=== PATIENT | male | born 1970 | race Caucasian/White ===

== ENCOUNTER → 2020-11-23 12:37 | Outpatient (CLI) | payer MEDICARE, SELFPAY ==
--- NOTE | 2020-11-23 12:44 | CT_ITS ---
STUDY: CT CERVICAL SPINE WITH INTRATHECAL CONTRAST (CERVICAL CT MYELOGRAM) REASON FOR EXAM: Male, 50 years old. RADICULOPATHY RADIATION DOSAGE (If Supplied By Facility): CTDIvol = ( 22.88 ) mGy, DLP = ( 565.84 ) mGycm TECHNIQUE: Transaxial images were obtained following intrathecal administration of 13 ml of ISOVUE 300 contrast material, performed by Dr. Ishaan CAMARILLO. Please refer to this physicians technical notes for procedural details. Coronal and sagittal reconstructions were obtained. Individualized dose optimization techniques were used for this CT. COMPARISON: Comparison is made with prior mammogram done earlier in the day. FINDINGS: Normal craniovertebral junction. There are degenerative changes of the anterior atlantoaxial articulation. Normal odontoid process. Normal cervical lordosis. Normal vertebral bodies and posterior osseous elements. C2-3: Normal endplates. Normal disc height and morphology. Normal central canal and bilateral intervertebral neural foramen. C3-4: Normal endplates. Normal disc height and morphology. Normal central canal and bilateral intervertebral neural foramen. C4-5: Mild degree of disc space narrowing. Mild to moderate degree of central disc bulge causing deformity of the thecal sac along its central portion. No significant stenosis is seen. C5-6: There is evidence of a a central and left paracentral posterior spondylosis. This causes deformity of the thecal sac more prominent on the left side. There is a moderate degree of narrowing of the AP diameter of the sac. C6-7: Moderate degree of disc space narrowing. There is evidence of a large posterior spondylosis along the central and right paracentral region at this level extending into the right neural foramina region causing a moderate degree of deformity of the thecal sac as well as moderate degree of right neural foraminal stenosis. Mild degree of left neural foraminal stenosis. C7-T1: Moderate degree of disc space narrowing. Posterior spondylosis and disc protrusion causing a moderate to marked degree of narrowing of the AP diameter of the canal with bilateral neural foraminal stenosis worse on the right side. No demonstrated soft tissue abnormality. CT/Spine Cervical WITH Contrast IMPRESSION: Multiple findings as discussed above. Electronically Signed: Renny Quiros MD at 14:06 EDT , Service support ,
--- NOTE | 2020-11-23 12:45 | RAD_ITS ---
PROCEDURE: CERVICAL MYELOGRAM DATE OF EXAMINATION: 11/23/2020 INDICATION: Male, 50 years old. Chronic neck pain. PHYSICIAN: Renny Quiros M.D. CONSENT: The patient''s history and physical findings were reviewed. The lumbar myelogram procedure was discussed with the patient prior to signing a consent. SEDATION: Local anesthesia with 3 mL of 1% lidocaine was used. FLUOROSCOPY TIME (if supplied): (0:56) minutes/seconds. 6 images were obtained. Injection Information: 13 cc of ISOVUE-M 300 Number of images obtained: 6 TECHNIQUE: Digital fluoroscopy was used to identify a safe approach for the lumbar myelogram. The back was prepped and draped in usual fashion. Local anesthesia was utilized. Under fluoroscopic guidance a 22-gauge spinal needle was inserted into the spinal canal at the L3-L4 level. The Clear spinal fluid was seen. 13 mL of Isovue 300 M was injected into the spinal canal. Following this, the patient was placed head down for the contrast to enter the cervical spine. A spinal cord stimulator device is seen. The distal tip of the electrodes is at the T7-T8 level. RAD/Myelography 2/> Spine Regions IMPRESSION: Normal lumbar and cervical myelogram. CT scan will follow. The patient tolerated the procedure well. Electronically Signed: Renny Quiros MD at 14:02 EDT , Service support ,
[2020-11-23 12:48] VITALS: BP 141/97; PULSE 99; RESP 16; TEMP 36.8; O2SAT 96; BMI 28.8
[2020-11-23] MEDS: Lidocaine 2% (5ml sdv) 5 ML VIAL.MPF 1 ML INFILT (13:00)
[2020-11-23 13:41] VITALS: BP 147/103; PULSE 103; RESP 16; O2SAT 97
[2020-11-23 14:27] VITALS: BP 142/95; PULSE 101; RESP 16; O2SAT 96
== END | disposition home or self-care (01) ==
LOC: RAD 12:41
PROVIDERS: Referring Provider Orthopaedic Surgery; Visit Provider Orthopaedic Surgery
DX: M47.22 Other spondylosis with radiculopathy, cervical region (principal)
CPT/HCPCS: 62305; 72126; Q9965

== ENCOUNTER → 2021-10-10 | Outpatient (CLI) | payer MEDICARE, SELFPAY ==
--- NOTE | 2021-10-10 16:55 | RAD_ITS ---
STUDY: X-RAY - RIGHT HAND REASON FOR EXAM: Male, 51 years old. right thumb pain TECHNIQUE: view(s) of the hand. COMPARISON: None. FINDINGS: Normal radiocarpal articulation. Normal distal radioulnar joint. Normal visualized carpal bones. Normal carpal articulations Normal carpometacarpal articulation of the thumb. Normal second through fifth carpometacarpal joints. Normal metacarpi. There is a fracture at the base of the first metacarpal.. Normal interphalangeal joint of the thumb. Normal proximal and distal phalanges of the thumb. Normal metacarpophalangeal joints of the second through fifth fingers. Normal proximal and distal interphalangeal joints of the second through fifth fingers. Normal phalanges of the second through fifth fingers. The soft tissue structures are unremarkable. RAD/Hand Min 3 Views IMPRESSION: Fracture at the base of the first metacarpal. Electronically Signed: Juan Luis Mckeon MD at 2:36 EDT ,
== END | disposition home or self-care (01) ==
LOC: MTLAB 16:53 → MTRAD 16:55
PROVIDERS: Referring Provider Internal Medicine; Visit Provider Internal Medicine
DX: M79.644 Pain in right finger(s) (principal)
CPT/HCPCS: 73130

== ENCOUNTER → 2021-12-31 | Outpatient (CLI) | payer MEDICARE, SELFPAY ==
--- NOTE | 2021-12-31 10:30 | RAD_ITS ---
STUDY: X-RAY CHEST REASON FOR EXAM: Male, 51 years old. Arthritis. Rheumatoid arthritis. Denies chest pain or shortness of breath. TECHNIQUE: PA and lateral views of the chest. COMPARISON: None. FINDINGS: The lungs are clear and mildly hyperexpanded. There is no demonstrated pleural abnormality. Normal size heart. Normal mediastinum and betty. Normal visualized pulmonary arteries. Normal visualized aortic arch and descending thoracic aorta. Mild degenerative changes of thoracic spine. There is a dorsal column stimulator within the spinal canal posterior to the T8 vertebra. Normal visualized ribs, clavicles, and shoulders. There is no demonstrated abnormality of the visualized soft tissue structures of the upper abdomen. RAD/Chest PA and Lateral IMPRESSION: 1. No acute cardiopulmonary disease. 2. Dorsal column stimulator Electronically Signed: Gurinder Do DO at 20:51 EDT ,
[2021-12-31 12:13] LABS: Erythrocyte Sedimentation Rate 12 mm/hr (0-20)
[2021-12-31 12:15] LABS: Absolute Neutrophil Count 4.7 X10^3/uL (2.0-7.7); Basophil# 0.03 X10^3/uL; Basophil% 0.4 % (0-1); Eosinophil# 0.05 X10^3/uL; Eosinophils% 0.6 % (0-5); Hematocrit 51.4 % (40-54); Hemoglobin 17.1 g/dL (13.0-16.5); Lymphocyte % 29.2 % (19-41); Mean Corp Hgb Conc 33.3 g/dL (32-36); Mean Corpuscular Hgb 32.4 pg (27.0-32.0); Mean Corpuscular Volume 97.3 fL (80-94); Mean Platelet Vol. 10.3 fl (6.2-12.0); Monocyte# 0.79 X10^3/uL; NRBC Flagged by Analyzer 0 % (0-5); Neutrophil # 4.68 X10^3/uL (2.7-7.7); Neutrophil % 59.5 % (47-70); Platelet Count 276 K/mm3 (150-450); RBC Distribution Width CV 12.8 % (11.6-14.6); RBC Distribution Width SD 46.6 fl (35.1-43.9); Red Blood Count 5.28 M/mm3 (4.6-6.2); White Blood Count 7.9 K/mm3 (4.4-11.0)
[2021-12-31 12:34] LABS: ALB/GLOB Ratio 0.9 RATIO (0.9-2.4); AST(SGOT) 35 U/L (15-37); Alanine Aminotransfer ALT/SGPT 41 U/L (16-61); Albumin, Serum 3.7 g/dL (3.2-5.0); Alkaline Phosphatase 63 U/L (45-117); Anion Gap 4 (5-15); BUN 23 mg/dL (7-18); BUN/Creat Ratio 14.9 RATIO (10-20); CRP < 2.90 mg/L (0.0-3.0); Calcium,Total 9.8 mg/dL (8.5-10.1); Chloride 100 mmol/L (98-107); Creatinine, Serum 1.54 mg/dL (0.70-1.30); EST Glomerular Filtration Rate 51 mL/min (>60); Est Glom Filt Rate - Afr Amer 61 mL/min (>60); Globulin 4.2 g/dL (2.2-4.2); Glucose 79 mg/dL (74-106); Potassium 3.8 mmol/L (3.5-5.1); Protein, Total 7.9 g/dL (6.4-8.2); Sodium Level 135 mmol/L (136-145)
[2021-12-31 13:02] LABS: Hepatitis B Surface Antibody Non-Reactive; Hepatitis B Surface Antigen Non-Reactive (Nonreactive); Hepatitis C Antibody Non-Reactive (Nonreactive)
[2022-01-01 17:06] LABS: ANTINUCLEAR ANTIBODIES DIRECT Negative (Negative)
== END | disposition home or self-care (01) ==
LOC: MTLAB 10:22
PROVIDERS: PCP Internal Medicine; Referring Provider Internal Medicine Rheumatology; Visit Provider Internal Medicine Rheumatology
DX: M05.79 Rheumatoid arthritis with rheumatoid factor of multiple sites without organ or systems involvement (principal); B20 Human immunodeficiency virus [HIV] disease; M47.897 Other spondylosis, lumbosacral region; I10 Essential (primary) hypertension; Z86.73 Personal history of transient ischemic attack (TIA), and cerebral infarction without residual deficits; I25.2 Old myocardial infarction; Z87.19 Personal history of other diseases of the digestive system
CPT/HCPCS: 36415; 71046; 80053; 85025; 85652; 86038; 86140; 86200; 86431; 86480; 86706; 86803; 87340

== ENCOUNTER → 2022-01-16 | Outpatient (CLI) | payer MEDICARE, SELFPAY ==
[2022-01-16 15:35] LABS: Cholesterol 238 mg/dL (200); High Density Lipoprotein 55 mg/dL; Triglycerides 89 mg/dL; Very Low Density Lipoprotein 18 mg/dL (5-40)
== END | disposition home or self-care (01) ==
PROVIDERS: PCP Internal Medicine; Referring Provider Internal Medicine Rheumatology; Visit Provider Internal Medicine Rheumatology
DX: M05.79 Rheumatoid arthritis with rheumatoid factor of multiple sites without organ or systems involvement (principal); B20 Human immunodeficiency virus [HIV] disease; M47.897 Other spondylosis, lumbosacral region; I10 Essential (primary) hypertension; Z86.73 Personal history of transient ischemic attack (TIA), and cerebral infarction without residual deficits; I25.2 Old myocardial infarction; Z87.19 Personal history of other diseases of the digestive system; G47.33 Obstructive sleep apnea (adult) (pediatric)
CPT/HCPCS: 36415; 80061

== ENCOUNTER → 2022-01-29 | Outpatient (CLI) | payer MEDICARE, SELFPAY | END | disposition home or self-care (01) | LOC: SL 20:37 | PROVIDERS: PCP Internal Medicine; Referring Provider Internal Medicine; Visit Provider Internal Medicine | DX: G47.33 Obstructive sleep apnea (adult) (pediatric) (principal) | CPT/HCPCS: 95811 ==

== ENCOUNTER → 2022-01-31 | Outpatient (CLI) | payer MEDICARE, SELFPAY ==
[2022-02-05 13:48] LABS: HIV-1 RNA by PCR, Quant. < 20 copies/mL (.)
== END | disposition home or self-care (01) ==
PROVIDERS: PCP Internal Medicine
DX: Z21 Asymptomatic human immunodeficiency virus [HIV] infection status (principal)
CPT/HCPCS: 36415; 87536

== ENCOUNTER → 2022-02-05 | Outpatient (CLI) | payer MEDICARE, SELFPAY ==
[2022-02-05 15:51] LABS: Absolute Lymphocyte Count 2.29 X10^3/uL (0.83-4.51); Absolute Neutrophil Count 6.6 X10^3/uL (2.0-7.7); Basophil# 0.02 X10^3/uL; Basophil% 0.2 % (0-1); Eosinophil# 0.06 X10^3/uL; Eosinophils% 0.6 % (0-5); Lymphocyte # 2.29 X10^3/ul (0.83-4.51); Lymphocyte % 22.9 % (19-41); Mean Corp Hgb Conc 35.3 g/dL (32-36); Mean Corpuscular Hgb 33.4 pg (27.0-32.0); Mean Corpuscular Volume 94.6 fL (80-94); Mean Platelet Vol. 10.4 fl (6.2-12.0); Monocyte# 0.97 X10^3/uL; Monocyte% 9.7 % (0-10); NRBC Flagged by Analyzer 0 % (0-5); Neutrophil # 6.64 X10^3/uL (2.7-7.7); Neutrophil % 66.4 % (47-70); Platelet Count 199 K/mm3 (150-450); RBC Distribution Width CV 13.3 % (11.6-14.6); RBC Distribution Width SD 46.6 fl (35.1-43.9); Red Blood Count 5.39 M/mm3 (4.6-6.2)
[2022-02-05 16:10] LABS: AST(SGOT) 41 U/L (15-37); Alanine Aminotransfer ALT/SGPT 55 U/L (16-61); Albumin, Serum 3.8 g/dL (3.2-5.0); Alkaline Phosphatase 71 U/L (45-117); Anion Gap 8 (5-15); BUN 26 mg/dL (7-18); BUN/Creat Ratio 14.9 RATIO (10-20); Calcium,Total 10.6 mg/dL (8.5-10.1); Chloride 101 mmol/L (98-107); Creatinine, Serum 1.75 mg/dL (0.70-1.30); EST Glomerular Filtration Rate 44 mL/min (>60); Est Glom Filt Rate - Afr Amer 53 mL/min (>60); Globulin 3.9 g/dL (2.2-4.2); Glucose 96 mg/dL (74-106); Potassium 3.9 mmol/L (3.5-5.1); Protein, Total 7.7 g/dL (6.4-8.2); Sodium Level 138 mmol/L (136-145)
[2022-02-07 10:27] LABS: Pathologist Review Reviewed
== END | disposition home or self-care (01) ==
PROVIDERS: PCP Internal Medicine; Referring Provider Internal Medicine Rheumatology; Visit Provider Internal Medicine Rheumatology
DX: M05.79 Rheumatoid arthritis with rheumatoid factor of multiple sites without organ or systems involvement (principal); B20 Human immunodeficiency virus [HIV] disease; Z79.899 Other long term (current) drug therapy; M47.897 Other spondylosis, lumbosacral region; I10 Essential (primary) hypertension; Z86.73 Personal history of transient ischemic attack (TIA), and cerebral infarction without residual deficits; I25.2 Old myocardial infarction; Z87.19 Personal history of other diseases of the digestive system; G47.33 Obstructive sleep apnea (adult) (pediatric)
CPT/HCPCS: 36415; 80053; 85025

== ENCOUNTER → 2022-04-04 | Outpatient (CLI) | payer MEDICARE, SELFPAY ==
[2022-04-04 12:41] LABS: Absolute Lymphocyte Count 1.27 X10^3/uL (0.83-4.51); Absolute Neutrophil Count 8.5 X10^3/uL (2.0-7.7); Basophil# 0.01 X10^3/uL; Basophil% 0.1 % (0-1); Hematocrit 48.7 % (40-54); Hemoglobin 17.2 g/dL (13.0-16.5); Lymphocyte # 1.27 X10^3/ul (0.83-4.51); Lymphocyte % 11.9 % (19-41); Mean Corp Hgb Conc 35.3 g/dL (32-36); Mean Corpuscular Hgb 33.1 pg (27.0-32.0); Mean Corpuscular Volume 93.8 fL (80-94); Mean Platelet Vol. 10.4 fl (6.2-12.0); Monocyte% 7.5 % (0-10); NRBC Flagged by Analyzer 0 % (0-5); Neutrophil # 8.51 X10^3/uL (2.7-7.7); Neutrophil % 80.1 % (47-70); Platelet Count 287 K/mm3 (150-450); RBC Distribution Width CV 13.3 % (11.6-14.6); Red Blood Count 5.19 M/mm3 (4.6-6.2); White Blood Count 10.6 K/mm3 (4.4-11.0)
[2022-04-04 13:10] LABS: AST(SGOT) 26 U/L (15-37); Alanine Aminotransfer ALT/SGPT 44 U/L (16-61); Albumin, Serum 3.9 g/dL (3.2-5.0); Alkaline Phosphatase 79 U/L (45-117); Anion Gap 7 (5-15); BUN 15 mg/dL (7-18); BUN/Creat Ratio 10.2 RATIO (10-20); Calcium,Total 9.9 mg/dL (8.5-10.1); Chloride 100 mmol/L (98-107); Cholesterol 229 mg/dL (200); Creatinine, Serum 1.47 mg/dL (0.70-1.30); EST Glomerular Filtration Rate 53 mL/min (>60); Est Glom Filt Rate - Afr Amer 64 mL/min (>60); Globulin 3.9 g/dL (2.2-4.2); Glucose 89 mg/dL (74-106); High Density Lipoprotein 53 mg/dL; Potassium 3.9 mmol/L (3.5-5.1); Protein, Total 7.8 g/dL (6.4-8.2); Sodium Level 137 mmol/L (136-145); Triglycerides 75 mg/dL; Very Low Density Lipoprotein 15 mg/dL (5-40)
== END | disposition home or self-care (01) ==
PROVIDERS: PCP Internal Medicine; Referring Provider Internal Medicine Rheumatology; Visit Provider Internal Medicine Rheumatology
DX: M05.79 Rheumatoid arthritis with rheumatoid factor of multiple sites without organ or systems involvement (principal); B20 Human immunodeficiency virus [HIV] disease; M47.897 Other spondylosis, lumbosacral region; I10 Essential (primary) hypertension; I25.2 Old myocardial infarction; G47.33 Obstructive sleep apnea (adult) (pediatric); Z87.19 Personal history of other diseases of the digestive system; Z86.73 Personal history of transient ischemic attack (TIA), and cerebral infarction without residual deficits; Z79.899 Other long term (current) drug therapy
CPT/HCPCS: 36415; 80053; 80061; 85025

== ENCOUNTER → 2022-05-30 | Outpatient (CLI) | payer MEDICARE, SELFPAY ==
[2022-05-30 12:20] LABS: Absolute Lymphocyte Count 1.98 X10^3/uL (0.83-4.51); Absolute Neutrophil Count 6.6 X10^3/uL (2.0-7.7); Basophil# 0.02 X10^3/uL; Basophil% 0.2 % (0-1); Eosinophil# 0.04 X10^3/uL; Eosinophils% 0.4 % (0-5); Hematocrit 51.3 % (40-54); Hemoglobin 17.8 g/dL (13.0-16.5); Lymphocyte # 1.98 X10^3/ul (0.83-4.51); Lymphocyte % 20.3 % (19-41); Mean Corp Hgb Conc 34.7 g/dL (32-36); Mean Corpuscular Volume 98.1 fL (80-94); Mean Platelet Vol. 10.1 fl (6.2-12.0); Monocyte# 1.11 X10^3/uL; Monocyte% 11.4 % (0-10); NRBC Flagged by Analyzer 0 % (0-5); Neutrophil # 6.56 X10^3/uL (2.7-7.7); Neutrophil % 67.3 % (47-70); Platelet Count 227 K/mm3 (150-450); RBC Distribution Width CV 13.6 % (11.6-14.6); RBC Distribution Width SD 49.3 fl (35.1-43.9); Red Blood Count 5.23 M/mm3 (4.6-6.2); White Blood Count 9.8 K/mm3 (4.4-11.0)
[2022-05-30 13:02] LABS: ALB/GLOB Ratio 1.2 RATIO (0.9-2.4); AST(SGOT) 31 U/L (15-37); Alanine Aminotransfer ALT/SGPT 46 U/L (16-61); Alkaline Phosphatase 88 U/L (45-117); Anion Gap 8 (5-15); BUN 21 mg/dL (7-18); BUN/Creat Ratio 15.2 RATIO (10-20); Calcium,Total 9.8 mg/dL (8.5-10.1); Chloride 102 mmol/L (98-107); Creatinine, Serum 1.38 mg/dL (0.70-1.30); EST Glomerular Filtration Rate 57 mL/min (>60); Est Glom Filt Rate - Afr Amer 69 mL/min (>60); Globulin 3.4 g/dL (2.2-4.2); Glucose 89 mg/dL (74-106); Potassium 4.1 mmol/L (3.5-5.1); Protein, Total 7.4 g/dL (6.4-8.2); Sodium Level 139 mmol/L (136-145)
== END | disposition home or self-care (01) ==
LOC: MTLAB 11:01
PROVIDERS: PCP Internal Medicine; Referring Provider Internal Medicine Rheumatology; Visit Provider Internal Medicine Rheumatology
DX: Z86.73 Personal history of transient ischemic attack (TIA), and cerebral infarction without residual deficits (principal); M05.79 Rheumatoid arthritis with rheumatoid factor of multiple sites without organ or systems involvement; B20 Human immunodeficiency virus [HIV] disease; M47.897 Other spondylosis, lumbosacral region; I10 Essential (primary) hypertension; I25.2 Old myocardial infarction; Z87.19 Personal history of other diseases of the digestive system
CPT/HCPCS: 36415; 80053; 85025

== ENCOUNTER → 2022-07-23 | Outpatient (CLI) | payer MEDICARE, SELFPAY ==
[2022-07-23 12:23] LABS: Absolute Lymphocyte Count 1.62 X10^3/uL (0.83-4.51); Absolute Neutrophil Count 7.5 X10^3/uL (2.0-7.7); Basophil# 0.02 X10^3/uL; Basophil% 0.2 % (0-1); Eosinophil# 0.06 X10^3/uL; Eosinophils% 0.6 % (0-5); Hematocrit 48.8 % (40-54); Hemoglobin 16.5 g/dL (13.0-16.5); Lymphocyte # 1.62 X10^3/ul (0.83-4.51); Lymphocyte % 16.4 % (19-41); Mean Corp Hgb Conc 33.8 g/dL (32-36); Mean Corpuscular Hgb 32.9 pg (27.0-32.0); Mean Corpuscular Volume 97.4 fL (80-94); Mean Platelet Vol. 9.4 fl (6.2-12.0); Monocyte# 0.62 X10^3/uL; Monocyte% 6.3 % (0-10); NRBC Flagged by Analyzer 0 % (0-5); Neutrophil # 7.47 X10^3/uL (2.7-7.7); Neutrophil % 75.8 % (47-70); Platelet Count 304 K/mm3 (150-450); RBC Distribution Width CV 12.8 % (11.6-14.6); RBC Distribution Width SD 45.8 fl (35.1-43.9); Red Blood Count 5.01 M/mm3 (4.6-6.2); White Blood Count 9.9 K/mm3 (4.4-11.0)
[2022-07-23 12:54] LABS: ALB/GLOB Ratio 0.9 RATIO (0.9-2.4); AST(SGOT) 35 U/L (15-37); Alanine Aminotransfer ALT/SGPT 49 U/L (16-61); Albumin, Serum 3.4 g/dL (3.2-5.0); Alkaline Phosphatase 101 U/L (45-117); Anion Gap 4 (5-15); BUN 18 mg/dL (7-18); BUN/Creat Ratio 12.2 RATIO (10-20); Calcium,Total 9.6 mg/dL (8.5-10.1); Chloride 101 mmol/L (98-107); Creatinine, Serum 1.48 mg/dL (0.70-1.30); EST Glomerular Filtration Rate 53 mL/min (>60); Est Glom Filt Rate - Afr Amer 64 mL/min (>60); Globulin 3.7 g/dL (2.2-4.2); Glucose 91 mg/dL (74-106); Potassium 3.9 mmol/L (3.5-5.1); Protein, Total 7.1 g/dL (6.4-8.2); Sodium Level 136 mmol/L (136-145)
[2022-07-23 13:01] LABS: Syphilis Antibodies Non-reactive
[2022-07-23 14:09] LABS: Chlamydia Trachomatis by PCR POSITIVE (Negative); Neisserai gonorrhoeae by PCR Negative (Negative); Probe Check PASS; Sample Adequacy Control PASS; Specimen Processing Control PASS
[2022-07-24 16:09] LABS: Absolute CD4 Helper 674 /uL (359-1519); Basophils (Absolute) 0 x10E3/uL (0.0-0.2); Eosinophils 1 % (Not Estab.); Eosinophils (Absolute) 0.1 x10E3/uL (0.0-0.4); Hematocrit 48.3 % (37.5-51.0); Hemoglobin 16.7 g/dL (13.0-17.7); Immature Granulocytes 1 % (Not Estab.); Lymphs 15 % (Not Estab.); Lymphs (Absolute) 1.5 x10E3/uL (0.7-3.1); MCHC 34.6 g/dL (31.5-35.7); MCV 96 fL (79-97); Monocytes 7 % (Not Estab.); Monocytes (Absolute) 0.7 x10E3/uL (0.1-0.9); Neutrophils 76 % (Not Estab.); Neutrophils (Absolute) 7.3 x10E3/uL (1.4-7.0); Percent % CD4 Pos. Lymph. 44.9 % (30.8-58.5); Platelets 312 x10E3/uL (150-450); RBC Count 5.06 x10E6/uL (4.14-5.80); WBC Count 9.5 x10E3/uL (3.4-10.8)
[2022-07-24 18:49] LABS: Immature Granulocytes Absolute 0.1 x10E3/uL (0.0-0.1)
[2022-07-25 18:40] LABS: HIV-1 RNA by PCR, Quant. < 20 copies/mL (.)
== END | disposition home or self-care (01) ==
LOC: BIMLAB 11:21
PROVIDERS: PCP Internal Medicine
DX: B20 Human immunodeficiency virus [HIV] disease (principal); Z11.3 Encounter for screening for infections with a predominantly sexual mode of transmission
CPT/HCPCS: 36415; 80053; 85025; 86361; 86780; 87491; 87536; 87591

== ENCOUNTER → 2022-08-05 | Outpatient (CLI) | payer MEDICARE, SELFPAY ==
[2022-08-05 18:23] LABS: Absolute Lymphocyte Count 1.18 X10^3/uL (0.83-4.51); Absolute Neutrophil Count 4.6 X10^3/uL (2.0-7.7); Basophil# 0.02 X10^3/uL; Basophil% 0.3 % (0-1); Eosinophil# 0.04 X10^3/uL; Eosinophils% 0.6 % (0-5); Hematocrit 45.4 % (40-54); Hemoglobin 15.3 g/dL (13.0-16.5); Lymphocyte # 1.18 X10^3/ul (0.83-4.51); Lymphocyte % 18.3 % (19-41); Mean Corp Hgb Conc 33.7 g/dL (32-36); Mean Corpuscular Hgb 32.7 pg (27.0-32.0); Mean Platelet Vol. 10.3 fl (6.2-12.0); Monocyte# 0.59 X10^3/uL; Monocyte% 9.1 % (0-10); NRBC Flagged by Analyzer 0 % (0-5); Neutrophil % 71.4 % (47-70); Platelet Count 198 K/mm3 (150-450); RBC Distribution Width CV 12.6 % (11.6-14.6); RBC Distribution Width SD 45.1 fl (35.1-43.9); Red Blood Count 4.68 M/mm3 (4.6-6.2); White Blood Count 6.5 K/mm3 (4.4-11.0)
[2022-08-05 18:41] LABS: ALB/GLOB Ratio 0.9 RATIO (0.9-2.4); AST(SGOT) 58 U/L (15-37); Alanine Aminotransfer ALT/SGPT 66 U/L (16-61); Albumin, Serum 3.4 g/dL (3.2-5.0); Alkaline Phosphatase 89 U/L (45-117); Anion Gap 7 (5-15); BUN 12 mg/dL (7-18); BUN/Creat Ratio 9.4 RATIO (10-20); Calcium,Total 9.2 mg/dL (8.5-10.1); Chloride 101 mmol/L (98-107); Creatinine, Serum 1.28 mg/dL (0.70-1.30); EST Glomerular Filtration Rate 62 mL/min (>60); Est Glom Filt Rate - Afr Amer 76 mL/min (>60); Globulin 3.6 g/dL (2.2-4.2); Glucose 83 mg/dL (74-106); Potassium 3.4 mmol/L (3.5-5.1); Sodium Level 139 mmol/L (136-145)
== END | disposition home or self-care (01) ==
PROVIDERS: PCP Internal Medicine; Referring Provider Internal Medicine Rheumatology; Visit Provider Internal Medicine Rheumatology
DX: B20 Human immunodeficiency virus [HIV] disease (principal); M05.79 Rheumatoid arthritis with rheumatoid factor of multiple sites without organ or systems involvement; M47.897 Other spondylosis, lumbosacral region; I10 Essential (primary) hypertension; Z86.73 Personal history of transient ischemic attack (TIA), and cerebral infarction without residual deficits; I25.2 Old myocardial infarction; Z87.19 Personal history of other diseases of the digestive system; G47.33 Obstructive sleep apnea (adult) (pediatric)
CPT/HCPCS: 36415; 80053; 85025